=== PATIENT | female | born 2000 ===

== ENCOUNTER 2021-12-11 15:44 | Outpatient (CLI) | payer OTHER ==
[2021-12-11 16:10] VITALS: BP 114/64
[2021-12-11] MEDS ORDERED: LACTATED RINGERS 500 ML IV ONE (18:30)
== END 2021-12-11 18:01 | disposition home or self-care (01) ==
LOC: TRG 15:44 → APU 15:44 → TRG 18:01
PROVIDERS: ATTEND Obstetrics & Gynecology
DX: O42.913 Preterm premature rupture of membranes, unspecified as to length of time between rupture and onset of labor, third trimester (principal)
CPT/HCPCS: 36415; 59025; 84112

== ENCOUNTER 2021-12-19 09:40 | Outpatient (CLI) | payer OTHER ==
[2021-12-19 12:00] VITALS: BP 135/75
[2021-12-19 12:59] LABS: Bilirubin,Urine NEG (Negative); Blood,Urine NEG (Negative); Color,Urine Yellow (Yellow); Protein,Urine <15 mg/dL mg/dL (Negative); Urobilinogen,Urine < 2.0 mg/dL (<2.0)
[2021-12-19 13:00] LABS: Mucus,Urine FEW /HPF; WBC,Urine < 1.0 /HPF (0.0-6.0)
[2021-12-19 13:08] LABS: Amphetamine Screen,Urine Negative; Benzodiazepines Screen,Urine Negative; Cannabinoid Screen,Urine Negative; Cocaine Screen,Urine Negative; Methadone Screen,Urine Negative; Opiate Screen,Urine Negative
--- NOTE | 2021-12-19 13:14 | Ultrasound Report ---
ULTRASOUND OBSTETRIC LIMITED ULTRASOUND BIOPHYSICAL PROFILE INDICATION / CLINICAL INFORMATION: denise. Clinical Gestational Age (GA): 37.6 weeks.days COMPARISON: None available. FINDINGS: BREATHING MOVEMENT = 0 GROSS BODY MOVEMENT = 2 TONE = 2 QUALITATIVE AMNIOTIC FLUID VOLUME = 2 TOTAL BIOPHYSICAL SCORE = 6/8 HEART RATE (beats per minute): 134 AMNIOTIC FLUID INDEX (cm) = 7.7 (normal = 7-24 cm) PRESENTATION: Cephalic. ADDITIONAL FINDINGS: None. IMPRESSION: 1. Biophysical Score = 6/8 Signer Name: Abdirizak Campo MD Signed: 12/19/2021 1:10 PM Workstation Name: [id number]
[2021-12-19] MEDS ORDERED: hydrOXYzine PAMOATE 25 MG CAP PO ONE (13:25)
== END 2021-12-19 14:05 | disposition home or self-care (01) ==
LOC: TRG 09:40 → APU 09:41 → TRG 14:05
PROVIDERS: ATTEND Obstetrics & Gynecology
DX: O62.9 Abnormality of forces of labor, unspecified (principal); Z3A.37 37 weeks gestation of pregnancy
CPT/HCPCS: 76815; 76819; 80307; 81001; Q0177